=== PATIENT | female | born 1965 | race African-American/Black ===

== ENCOUNTER 2018-09-25 21:05 | Emergency (ER) | payer SELFPAY ==
[2018-09-25] MEDS ORDERED: IBUPROFEN 600 MG TABLET PO ONE (22:20)
--- NOTE | 2018-09-25 22:25 | ER Document Report ---
ED Skin Rash/Insect Bite/Abscs - General Chief Complaint: Insect Bite Stated Complaint: LEG PAIN Time Seen by Provider: 09/25/18 22:16 Primary Care Provider: DEVI SERRANO [NO LOCAL MD] - Follow up as needed Mode of Arrival: Ambulatory Information source: Patient Notes: 52-year-old female presents to ED for complaint of pain and swelling to the right lateral lower leg after she was in bit by an insect yesterday. There is no signs or symptoms of infection. There is a local reaction to an insect bite to the lateral right leg. Patient states she does have a history of high blood pressure and other allergies to Bactrim. She is not taking any Benadryl she has not applied any ice to the area. She is alert oriented respirations regular and unlabored speaking in full sentences. She denies any shortness of breath any swelling to the throat or any difficulty swallowing. TRAVEL OUTSIDE OF THE [place] IN LAST 30 DAYS: No - HPI Patient complains to provider of: Insect bite Onset: Yesterday Onset/Duration: Gradual Severity: Moderate Pain Level: 3 Skin Character: Erythema - Right lateral calf Quality of rash: Painful Identify cause: Yes - Insect bite Exacerbated by: Denies Relieved by: Denies Similar symptoms previously: Yes - More swollen than usual Recently seen / treated by doctor: No - Related Data Allergies/Adverse Reactions: sulfamethoxazole [From Bactrim] Allergy (Verified 09/25/18 21:48) trimethoprim [From Bactrim] Allergy (Verified 09/25/18 21:48) Past Medical History - General Information source: Patient - Social History Smoking Status: Former Smoker Cigarette use (# per day): No Chew tobacco use (# tins/day): No Smoking Education Provided: No Frequency of alcohol use: Occasional Drug Abuse: None Lives with: Parents Family History: Reviewed & Not Pertinent Patient has suicidal ideation: No Patient has homicidal ideation: No - Past Medical History Cardiac Medical History: Reports: Hx Hypertension Pulmonary Medical History: Reports: None EENT Medical History: Reports: None Neurological Medical History: Reports: None Endocrine Medical History: Reports: None Renal/ Medical History: Reports: None Malignancy Medical History: Reports: None GI Medical History: Reports: None Musculoskeletal Medical History: Reports None Skin Medical History: Reports None Psychiatric Medical History: Reports: None Traumatic Medical History: Reports: None Infectious Medical History: Reports: None Surgical Hx: Negative Past Surgical History: Reports: None - Immunizations Immunizations up to date: Yes Review of Systems - Review of Systems Constitutional: No symptoms reported EENT: No symptoms reported Cardiovascular: No symptoms reported Respiratory: No symptoms reported Gastrointestinal: No symptoms reported Genitourinary: No symptoms reported Female Genitourinary: No symptoms reported Musculoskeletal: No symptoms reported Skin: Other - Red swollen tender area to the right lateral calf where she was bit by an insect Hematologic/Lymphatic: No symptoms reported Neurological/Psychological: No symptoms reported -: Yes All other systems reviewed and negative Physical Exam - Vital signs Vitals: Temp Pulse Resp BP Pulse Ox 98.0 F 79 16 134/86 H 100 09/25/18 21:52 09/25/18 21:52 09/25/18 21:52 09/25/18 21:52 09/25/18 21:52 Interpretation: Normal - General General appearance: Appears well, Alert - HEENT Head: Normocephalic, Atraumatic Eyes: Normal Pupils: PERRL - Respiratory Respiratory status: No respiratory distress Chest status: Nontender Breath sounds: Normal Chest palpation: Normal - Cardiovascular Rhythm: Regular Heart sounds: Normal auscultation Murmur: No - Abdominal Inspection: Normal Distension: No distension Bowel sounds: Normal Tenderness: Nontender Organomegaly: No organomegaly - Back Back: Normal, Nontender - Extremities General upper extremity: Normal inspection, Nontender, Normal color, Normal ROM, Normal temperature General lower extremity: Normal ROM, Normal temperature, Normal weight bearing. No: Ivan's sign Calf: Tender - Erythematous swollen area to the right lateral calf since being bit by an insect yesterday Ankle: Normal, Nontender Foot: Normal, Nontender - Neurological Neuro grossly intact: Yes Cognition: Normal Orientation: AAOx4 [place] Coma Scale Eye Opening: Spontaneous [place] Coma Scale Verbal: Oriented [place] Coma Scale Motor: Obeys Commands Prachi Coma Scale Total: 15 Speech: Normal Motor strength normal: LUE, RUE, LLE, RLE Sensory: Normal - Psychological Associated symptoms: Normal affect, Normal mood - Skin Skin Temperature: Warm Skin Moisture: Dry Skin Color: Normal Course - Re-evaluation Re-evalutation: 09/25/18 22:25 Patient was instructed on use of Benadryl, calamine lotion, elevation and ice to the area. Patient instructed to return to the ED for any increase in swelling. Patient to follow-up with her primary care doctor for her blood pressure. Patient able to verbalize understanding and agreement with treatment plan. Patient was given ibuprofen in the emergency room and discharged home. - Vital Signs Vital signs: Temp Pulse Resp BP Pulse Ox 98.2 F 82 17 130/86 H 100 09/25/18 22:34 09/25/18 22:34 09/25/18 22:34 09/25/18 22:34 09/25/18 22:34 Discharge - Discharge Clinical Impression: Insect bite local reaction right calf Condition: Stable Disposition: HOME, SELF-CARE Instructions: Family Physicians / Practices Additional Instructions: Insect Bites You have been bitten by an insect. These bites can cause two types of swelling: an initial swelling due to insect saliva or injected poison, and a late reaction due to your body's allergic reaction. This initial local reaction may be uncomfortable but is not dangerous. Often there's an itchy "hive" at the bite location. This is treated with antihistamines, cold compresses, and resting the affected body part. The later reaction often develops about the second day. The entire area becomes very swollen, red, itchy, and tender. This is an allergic reaction. Your body is attacking the leftover insect saliva or venom. This type of allergy is unpleasant, but not dangerous. We treat this swelling with cortisone-type medicine. Sometimes we use antibiotics if we're worried about infection. Antihistamines help with the itch. If you develop a fever, chills, a red streak, or swollen glands in the area of the bite, infection may be starting. Return at once. Ibuprofen Ibuprofen is an excellent, safe drug for pain control. In addition, it has potent antiinflammatory effects which are beneficial, especially in the treatment of injuries, arthritis, or tendonitis. It's best to take ibuprofen with food. Persons with ulcer disease or allergy to aspirin should notify their physician of this before taking ibuprofen. Take the medication exactly as prescribed. Don't take additional doses unless instructed to do so by your doctor. If you develop wheezing, shortness of breath, hives, faintness, stomach pain, vomiting, or dark black stools, return for re-evaluation at once. Ice & Elevation Apply ice packs frequently against the painful area. Many different schedules are recommended, such as "20 minutes on, 20 minutes off" or "one hour ice, two hours rest." If you need to work, you may need to go longer between ice treatments. You should plan to have the area ice packed AT LEAST one-fourth of the time. The ice should be applied over the wrap, tape, or splint, or over a layer of cloth -- not directly against the skin. Some ice bags have a built-in cloth and can be put directly on the skin. Your injured part should be elevated as much as possible over the next 48 hours. Try to keep the injury above the level of the heart. Avoid use of the injured area. Elevation and rest will decrease the swelling. Diphenhydramine The use of diphenhydramine (Benadryl) has been recommended to control allergic symptoms. The 25 mg strength is available over- the-counter, as well as the elixir. This antihistamine is used for many symptoms. It's useful for itching, watering eyes and nose, allergic swelling, hives, and insect stings. The medication can be repeated four times daily. Age Elixir (12.5 mg/tsp) 25 mg pill 1 yr 1/4 tsp 2-3 yr 1/2 tsp 4-8 yr 1 tsp 9-14 yr 2 tsp one tab adult 1-2 tabs Antihistamines may cause drowsiness, especially with the first dose. Do not operate machinery or drive while under the effects of the medication. Do not combine the medication with alcohol, or with any other medication without talking to your doctor. FOLLOW-UP CARE: If you have been referred to a physician for follow-up care, call the physicians office for an appointment as you were instructed or within the next two days. If you experience worsening or a significant change in your symptoms, notify the physician immediately or return to the Emergency Department at any time for re-evaluation. Forms: Elevated Blood Pressure, Return to Work Referrals: ZACH,NO [NO LOCAL MD] - Follow up as needed
[2018-09-25 22:38] VITALS: BP 130/86
== END 2018-09-25 22:34 | disposition home or self-care (01) ==
LOC: ER 21:05
DX: S80.861A Insect bite (nonvenomous), right lower leg, initial encounter (principal); W57.XXXA Bitten or stung by nonvenomous insect and other nonvenomous arthropods, initial encounter; Y93.9 Activity, unspecified; Y92.9 Unspecified place or not applicable; Y99.9 Unspecified external cause status; I10 Essential (primary) hypertension; Z87.891 Personal history of nicotine dependence; Z88.2 Allergy status to sulfonamides
CPT/HCPCS: 99281

== ENCOUNTER 2019-12-02 19:35 | Emergency (ER) | payer BC ==
[2019-12-02 20:20] LABS: APPEARANCE,URINE SLIGHTLY-CLOUDY; BILIRUBIN,URINE NEGATIVE (NEGATIVE); COLOR,URINE YELLOW; GLUCOSE, URINE >=500 mg/dL (NEGATIVE); KETONES,URINE NEGATIVE (NEGATIVE); LEUKOCYTE ESTERASE,URINE TRACE (NEGATIVE); NITRITE,URINE POSITIVE (NEGATIVE); PROTEIN,URINE 30 mg/dL (NEGATIVE); URINE SPECIFIC GRAVITY 1.018; UROBILINOGEN,URINE NEGATIVE mg/dL (<2.0)
--- NOTE | 2019-12-02 20:33 | ER Document Report ---
ED Medical Screen (RME) - General Chief Complaint: Flank Pain Stated Complaint: FLANK PAIN Time Seen by Provider: 12/02/19 20:29 Mode of Arrival: Ambulatory Information source: Patient Notes: 53-year-old female patient presenting with left lower quadrant abdominal pain that wraps around her left flank area. She also reports urinary frequency. She denies any fever or chills, states she has had nausea. She states she had similar symptoms about 6 weeks ago and was seen at an urgent care and was given Macrobid. She states this pain is much worse than then but similar in nature. She denies any history of kidney stones. I have greeted and performed a rapid initial assessment of this patient. A comprehensive ED assessment and evaluation of the patient, analysis of test results and completion of the medical decision making process will be conducted by additional ED providers. I have specifically instructed the patient or family members with the patient to immediately return to any nursing staff should anything change in the patient's condition or with their chief complaint. TRAVEL OUTSIDE OF THE [place] IN LAST 30 DAYS: No - Related Data Allergies/Adverse Reactions: sulfamethoxazole [From Bactrim] Allergy (Verified 09/25/18 21:48) trimethoprim [From Bactrim] Allergy (Verified 09/25/18 21:48) Past Medical History - Past Medical History Cardiac Medical History: Reports: Hx Hypertension Renal/ Medical History: Denies: Hx Peritoneal Dialysis - Immunizations Immunizations up to date: Yes Physical Exam - Vital signs Vitals: Temp Pulse Resp BP Pulse Ox 98.6 F 77 20 123/85 99 12/02/19 19:41 12/02/19 19:41 12/02/19 19:41 12/02/19 19:41 12/02/19 19:41 Course - Vital Signs Vital signs: Temp Pulse Resp BP Pulse Ox 98.6 F 77 20 123/85 99 12/02/19 19:41 12/02/19 19:41 12/02/19 19:41 12/02/19 19:41 12/02/19 19:41 - Laboratory Laboratory results interpreted by me: 12/02/19 19:45 Urine Protein 30 H Urine Glucose (UA) >=500 H Urine Blood SMALL H Urine Nitrite POSITIVE H Ur Leukocyte Esterase TRACE H
[2019-12-02 21:18] LABS: ABSOLUTE EOSINOPHILS # (AUTO) 0.1 10^3/uL (0.0-0.6); ABSOLUTE LYMPHOCYTES (AUTO) 2.2 10^3/uL (0.5-4.7); ABSOLUTE MONOCYTES (AUTO) 0.5 10^3/uL (0.1-1.4); ABSOLUTE NEUT (AUTO) 5.5 10^3/uL (1.7-8.2); BASOPHILS % (AUTO) 0.5 % (0-2); EOSINOPHILS % (AUTO) 1.6 % (0-6); HEMATOCRIT 38.8 % (36.0-47.0); HEMOGLOBIN 13.1 g/dL (12.0-15.5); LYMPHOCYTES % (AUTO) 25.7 % (13-45); MEAN CORPUSCULAR HEMOGLOBIN 28.6 pg (27.0-33.4); MEAN CORPUSCULAR HGB CONC 33.7 g/dL (32.0-36.0); MEAN CORPUSCULAR VOLUME 85 fl (80-97); MONOCYTES % (AUTO) 6.1 % (3-13); PLATELET COUNT 207 10^3/uL (150-450); RED BLOOD COUNT 4.56 10^6/uL (3.72-5.28); RED CELL DISTRIBUTION WIDTH 14.1 % (11.5-14.0); SEGMENTED NEUTROPHILS % (AUTO) 66.1 % (42-78); TOTAL CELLS COUNTED % (AUTO) 100 %; WHITE BLOOD COUNT 8.4 10^3/uL (4.0-10.5)
[2019-12-02 21:38] LABS: ALBUMIN 4.4 g/dL (3.5-5.0); ALKALINE PHOSPHATASE 72 U/L (38-126); ANION GAP 9 (5-19); ASPARTATE AMINO TRANSFERASE 22 U/L (14-36); BILIRUBIN,TOTAL 0.5 mg/dL (0.2-1.3); BLOOD UREA NITROGEN 16 mg/dL (7-20); CALCIUM 9.4 mg/dL (8.4-10.2); CARBON DIOXIDE 27 mmol/L (22-30); CHLORIDE 106 mmol/L (98-107); GLUCOSE 137 mg/dL (75-110); POTASSIUM 3.7 mmol/L (3.6-5.0); TOTAL PROTEIN 7.6 g/dL (6.3-8.2)
[2019-12-02] MEDS ORDERED: ONDANSETRON HCL INJ/PF 4 MG/2 ML SDV IV ONE (22:06)
[2019-12-02] MEDS ORDERED: CEFTRIAXONE 1 GM/D5W RTU 1 GM/50 ML RTUPB IV ONE (22:06)
[2019-12-02] MEDS ORDERED: MORPHINE SULFATE 10 MG/ML INJ IV ONE (22:06)
--- NOTE | 2019-12-02 22:08 | ER Document Report ---
ED GI/ - General Chief Complaint: Flank Pain Stated Complaint: FLANK PAIN Time Seen by Provider: 12/02/19 20:29 Mode of Arrival: Ambulatory Notes: Patient is a 53-year-old female that comes emergency department for chief complaint of general left-sided abdominal pain wraps around her left flank. She states that the pain is worsening and started out mild last night. She states that pain is significantly worsened and now has become very sharp. She reports urinary frequency but denies dysuria. She has had nausea but denies vomiting, fever/chills, or any other complaints. Patient states she had similar symptoms about 6 weeks ago, she was seen in urgent care and was given Macrobid at this time. She states that she has frequent bladder infections and she also has had kidney stones several times in the past. She denies any recent imaging, denies frequent imaging. Past medical history of hypertension, denies medical history otherwise. She states she follows with urology in [place]. TRAVEL OUTSIDE OF THE [place] IN LAST 30 DAYS: No - Related Data Allergies/Adverse Reactions: sulfamethoxazole [From Bactrim] Allergy (Verified 09/25/18 21:48) trimethoprim [From Bactrim] Allergy (Verified 09/25/18 21:48) Home Medications: farxiga, lisinopril, vit d, atorvastatin Past Medical History - General Information source: Patient - Social History Smoking Status: Never Smoker Chew tobacco use (# tins/day): No Frequency of alcohol use: Social Drug Abuse: None Lives with: Family Family History: Reviewed & Not Pertinent Patient has homicidal ideation: No - Past Medical History Cardiac Medical History: Reports: Hx Hypercholesterolemia, Hx Hypertension Endocrine Medical History: Reports: Hx Diabetes Mellitus Type 2 - pre, farxiga Renal/ Medical History: Denies: Hx Peritoneal Dialysis Past Surgical History: Reports: Hx Hysterectomy - Immunizations Immunizations up to date: Yes Review of Systems - Review of Systems Constitutional: No symptoms reported EENT: No symptoms reported Cardiovascular: No symptoms reported Respiratory: No symptoms reported Gastrointestinal: See HPI Genitourinary: See HPI Female Genitourinary: No symptoms reported Musculoskeletal: No symptoms reported Skin: No symptoms reported Hematologic/Lymphatic: No symptoms reported Neurological/Psychological: No symptoms reported Physical Exam - Vital signs Vitals: Temp Pulse Resp BP Pulse Ox 98.6 F 77 20 123/85 99 12/02/19 19:41 08/23/20 19:41 12/02/19 19:41 12/02/19 19:41 12/02/19 19:41 - Notes Notes: GENERAL: Alert, interacts well. No acute distress. HEAD: Normocephalic, atraumatic. EYES: Pupils equal, round, and reactive to light. Extraocular movements intact. ENT: Oral mucosa moist, tongue midline. Oropharynx unremarkable. Airway patent. NECK: Full range of motion. Supple. Trachea midline. No lymphadenopathy. LUNGS: Clear to auscultation bilaterally, no wheezes, rales, or rhonchi. No respiratory distress. Non-tender chest wall. HEART: Regular rate and rhythm. No murmur ABDOMEN: Generalized mid to lower abdominal tenderness especially on the left side. No guarding or rigidity. Bowel sounds present throughout. EXTREMITIES: Moves all 4 extremities spontaneously. No edema, normal radial and dorsalis pedis pulses bilaterally. No cyanosis. BACK: no cervical, thoracic, lumbar midline tenderness. No saddle anesthesia, normal distal neurovascular exam. Moves all extremities in full range of motion. NEUROLOGICAL: Alert and oriented x3. Normal speech. Cranial nerves II through XII grossly intact. Strength 5/5 in all extremities. PSYCH: Normal affect, normal mood. SKIN: Warm, dry, normal turgor. No rashes or lesions noted. Course - Re-evaluation Re-evalutation: Patient with generalized abdominal pain worse on the left on exam but no guarding. No overt CVA tenderness. She does not appear to be in severe distress but does state that she feels like she is passing a kidney stone. She states she has passed many kidney stones. We do not have any comparison images. CBC unremarkable, chemistry unremarkable, UTI is present. Started on Rocephin. Because of UTI and potential infected stone CAT scan was performed but shows only constipation with no acute findings. Discussed with patient. Patient was medicated earlier, she is smiling and well-appearing on reevaluation, I di scussed all details at length. Patient will be treated with antibiotics, she states she has a stool softener at home that she will resume intake for the next several days, discussed follow-up and return precautions. Patient states appreciation and agreement. Stable and well-appearing at time of discharge. - Vital Signs Vital signs: Temp Pulse Resp BP Pulse Ox 98.2 F 87 14 116/89 H 99 12/03/19 00:11 12/03/19 00:11 12/03/19 00:11 12/03/19 00:11 12/03/19 00:11 - Laboratory Result Diagrams: 12/02/19 20:55 12/02/19 20:55 Laboratory results interpreted by me: 12/02/19 12/02/19 12/02/19 19:45 20:55 20:55 RDW 14.1 H Glucose 137 H Urine Protein 30 H Urine Glucose (UA) >=500 H Urine Blood SMALL H Urine Nitrite POSITIVE H Ur Leukocyte Esterase TRACE H Discharge - Discharge Clinical Impression: Abdominal pain Qualifiers: Abdominal location: generalized Qualified Code(s): R10.84 - Generalized abd ominal pain Urinary tract infection Qualifiers: Urinary tract infection type: site unspecified Hematuria presence: without hematuria Qualified Code(s): N39.0 - Urinary tract infection, site not specified Condition: Stable Disposition: HOME, SELF-CARE Additional Instructions: Your evaluation shows a urinary tract infection, take antibiotics to completion. Drink plenty of fluids. You have a large amount of retained stool on the imaging but no kidney stones or passing stones. I recommend your MiraLAX 1-2 times daily for the next several days. Take Zofran if needed for nausea. You can take 600 mg of ibuprofen and 1000 g of Tylenol together every 6 hours for pain. Return if you worsen including severe worsening pain, vomiting, fevers, or any other concerning symptoms. Prescriptions: Cephalexin Monohydrate [Keflex 500 mg Capsule] 500 mg PO BID 7 Days #14 capsule Ondansetron [Zofran Odt 4 mg Tablet] 1 - 2 tab PO Q4H PRN #15 tab.rapdis PRN Reason: For Nausea/Vomiting Forms: Return to Work
--- NOTE | 2019-12-02 22:38 | RADIOLOGY REPORT (SQ) ---
EXAM DESCRIPTION: CT ABDOMEN PELVIS WITHOUT IV CONTRAST COMPLETED DATE/TME: 12/02/2019 22:06 CLINICAL HISTORY: 53 years, Female, left abd/flank pain, UTI, hx kidney stones COMPARISON: None. TECHNIQUE: 324 Images stored on PACS. All CT scanners at this facility use dose modulation, iterative reconstruction, and/or weight based dosing when appropriate to reduce radiation dose to as low as reasonably achievable (ALARA). [facility]: Dose Right [facility]: CareDose [facility]: Dose Right [facility]: Teradose 4D [facility]: [employer] LIMITATIONS: None. FINDINGS: Limited evaluation of the lung bases is unremarkable. Osseous structures are grossly intact. Limited evaluation of the liver, spleen, adrenal glands, pancreas, kidneys are unremarkable. Gallbladder is contracted. Negative for urinary tract calculus or hydronephrosis. No gross evidence for bowel obstruction. Large amount of stool in the colon. Normal appendix. No free air. No free fluid IMPRESSION: Negative for urinary tract calculus. Large amount of stool in the colon TECHNICAL DOCUMENTATION: Quality ID # [id number]: Final reports with documentation of one or more dose reduction techniques (e.g., Automated exposure control, adjustment of the mA and/or kV according to patient size, use of iterative reconstruction technique) copyright 2011 [employer]- All Rights Reserved
[2019-12-02] MEDS ORDERED: ONDANSETRON ODT 4 MG TAB (6 TAB/ER DISP) PO PRN (23:55)
[2019-12-03 00:14] VITALS: BP 116/89
== END 2019-12-03 00:14 | disposition home or self-care (01) ==
LOC: ER 19:35
DX: R10.84 Generalized abdominal pain (principal); N39.0 Urinary tract infection, site not specified; R10.9 Unspecified abdominal pain; R35.0 Frequency of micturition; Z88.2 Allergy status to sulfonamides; R11.0 Nausea; Z79.899 Other long term (current) drug therapy
CPT/HCPCS: 99285; 96375; 96365; 36415; 87086; 83690; 85025; 87088; 80053; 81001; 87186; 74176; J2270; J2405; J0696

== ENCOUNTER → 2020-04-10 | Outpatient (CLI) | payer BC ==
--- NOTE | 2020-04-10 15:36 | RADIOLOGY REPORT (SQ) ---
EXAM DESCRIPTION: WRIST BILATERAL 3 VIEWS IMAGES COMPLETED DATE/TIME: 04/10/2020 3:19 pm REASON FOR STUDY: NEUROPATHY M54.9 DORSALGIA, UNSPECIFIED G56.02 CARPAL TUNNEL SYNDROME, LEFT UPPE R LIMB G56.01 CARPAL TUNNEL SYNDROME, RIGHT UPPER LIMB COMPARISON: None. NUMBER OF VIEWS: Three views. TECHNIQUE: AP, lateral, and oblique radiographic images acquired of the right and left wrist. LIMITATIONS: None. FINDINGS: MINERALIZATION: Normal. BONES: No acute fracture or dislocation. No worrisome bone lesions. Normal alignment. No significant osteophytes. JOINTS: No erosions. No erendira-articular osteopenia. No chondrocalcinosis. SOFT TISSUES: No swelling. No calcifications. OTHER: No other significant finding. IMPRESSION: NEGATIVE STUDY OF THE RIGHT AND LEFT WRISTS. NO EXPLANATION FOR PAIN. TECHNICAL DOCUMENTATION: JOB ID: [id number] 2010 [employer]- All Rights Reserved Reading location - IP/workstation name: [email or web address]
--- NOTE | 2020-04-10 15:49 | RADIOLOGY REPORT (SQ) ---
EXAM DESCRIPTION: L SPINE WHOLE IMAGES COMPLETED DATE/TIME: 04/10/2020 3:19 pm REASON FOR STUDY: NEUROPATHY M54.9 DORSALGIA, UNSPECIFIED G56.02 CARPAL TUNNEL SYNDROME, LEFT UPPE R LIMB G56.01 CARPAL TUNNEL SYNDROME, RIGHT UPPER LIMB COMPARISON: 05/25/2010 NUMBER OF VIEWS: Five views including obliques. TECHNIQUE: AP, lateral, oblique, and sacral radiographic images acquired of the lumbar spine. LIMITATIONS: None. FINDINGS: MINERALIZATION: Normal. SEGMENTATION: Normal. No transitional anatomy. ALIGNMENT: Normal. VERTEBRAE: Maintained height. No fracture or worrisome bone lesion. DISCS: Degenerate at T10-T11 and T12-L1 with mild anterior osteophytes. Slight interval progression since the prior study. POSTERIOR ELEMENTS: Facet arthrosis. Pedicles are intact. No pars defect or posterior arch defects . HARDWARE: None in the spine. PARASPINAL SOFT TISSUES: Normal. PELVIS: Intact as visualized. No fractures or worrisome bone lesions. SI joints intact. OTHER: No other significant finding. IMPRESSION: 1. Facet arthrosis lower lumbar spine. Degenerative disc disease T10-T11 and T12-L1. S light interval progression since the prior study dated 05/25/2010. 2. No acute osseous findings. TECHNICAL DOCUMENTATION: JOB ID: [id number] [employer]- All Rights Reserved Reading location - IP/workstation name: [email or web address]
== END ==
LOC: RAD 14:25
PROVIDERS: ATTEND Nurse Practitioner Family
DX: M51.34 Other intervertebral disc degeneration, thoracic region (principal); M47.896 Other spondylosis, lumbar region; G56.03 Carpal tunnel syndrome, bilateral upper limbs; G60.9 Hereditary and idiopathic neuropathy, unspecified
CPT/HCPCS: 72110

== ENCOUNTER 2020-04-11 09:15 | Emergency (ER) | payer BC ==
--- NOTE | 2020-04-11 11:07 | ER Document Report ---
ED Neck/Back Problem - General Chief Complaint: Back Pain Stated Complaint: BACK SPASMS/PAIN Time Seen by Provider: 04/11/20 11:06 Primary Care Provider: DORA AREVALO FNP-C [Primary Care Provider] - Follow up as needed Mode of Arrival: Ambulatory Information source: Patient Notes: 04/11/20 11:03 - ED Nursing Note by KATJENNIFERIDA [facility] Num: [id number] : 1965 Patient Age: 54 Pt states that she came here yesterday to have an xray of her back as outpatient due to back pain that she has been having for several months. Pt states that the back pain has gotten increasingly worse since yesterday and now radiates to her shoulder blades and to her right flank. Pt denies any other pain or symptom. Pt breathing e/u.NAD noted. MY NOTES 54-year-old female with chief complaint of back pain that has gotten progressively worse over 24 hours. 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 Patient also had x-rays of bilateral wrists for carpal tunnel. She just had her thyroid checked 2 months ago which was normal. She advises to go to get some blood work on Tuesday with her private doctor. Her pain is around her CVA bilaterally down to her bilateral SI joints. Pain is worse on flexion and extension and rotation. She also has sciatica pain down her right gluteus. She does not have a orthopedic doctor. TRAVEL OUTSIDE OF THE [place] IN LAST 30 DAYS: No - HPI Patient complains to provider of: Lower back. No: Pain, Injury, Neck Onset: Other - Worse x24 hours but on and off for several months. Where: Home, Work. No: Indoors, Neighbor's, [facility], Outdoors, Public place, School, Sports Severity: Mild Pain Level: 1 Context: Lifting, Turning. denies: Became dizzy, Bending, Fainted, Fall/near- fall, Seizure Recent injury: Possibly Associated symptoms: Radiation to leg, Lower back pain, Other. denies: Chest pain, Abdominal pain, Chills, Constipation, Fever, Incontinence, Motor loss Exacerbated by: Movement of trunk, Sitting position. denies: Cough/deep breaths, Movement of neck Similar symptoms previously: No Recently seen / treated by doctor: No - Related Data Allergies/Adverse Reactions: sulfamethoxazole [From Bactrim] Allergy (Verified 04/11/20 11:06) trimethoprim [From Bactrim] Allergy (Verified 04/11/20 11:06) Past Medical History - General Information source: Patient - Social History Smoking Status: Unknown if Ever Smoked Cigarette use (# per day): No Chew tobacco use (# tins/day): No Smoking Education Provided: No Frequency of alcohol use: None Drug Abuse: None Lives with: Family Family History: Reviewed & Not Pertinent Patient has suicidal ideation: No Patient has homicidal ideation: No - Past Medical History Cardiac Medical History: Reports: Hx Hypercholesterolemia, Hx Hypertension Endocrine Medical History: Reports: Hx Diabetes Mellitus Type 2 - pre, farxiga Renal/ Medical History: Denies: Hx Peritoneal Dialysis Past Surgical History: Reports: Hx Hysterectomy - Immunizations Immunizations up to date: Yes Review of Systems - Review of Systems Constitutional: No symptoms reported EENT: No symptoms reported Cardiovascular: No symptoms reported Respiratory: No symptoms reported Gastrointestinal: No symptoms reported Genitourinary: No symptoms reported Female Genitourinary: No symptoms reported Musculoskeletal: See HPI, Back pain, Joint pain - Wrist pain bilaterally full range of motion Skin: No symptoms reported Hematologic/Lymphatic: No symptoms reported Neurological/Psychological: No symptoms reported Physical Exam - Vital signs Vitals: Temp Pulse Resp BP Pulse Ox 98.3 F 70 18 142/102 H 99 04/11/20 09:22 04/11/20 09:22 04/11/20 09:22 04/11/20 09:22 04/11/20 09:22 Interpretation: Normal - General General appearance: Appears well, Alert - HEENT Head: Normocephalic, Atraumatic Eyes: Normal Pupils: PERRL - Respiratory Respiratory status: No respiratory distress Chest status: Nontender Breath sounds: Normal Chest palpation: Normal - Cardiovascular Rhythm: Regular Heart sounds: Normal auscultation Murmur: No - Abdominal Inspection: Normal Distension: No distension Bowel sounds: Normal Tenderness: Nontender Organomegaly: No organomegaly - Rectal Hemorrhoids: Other - deferred - Genitourinary Bimanuel exam: Other - deferred - Back Back: Tender - Right CVA greater than left CVA pain patient also has pain down the right gluteal and to the posterior thigh. - Extremities General upper extremity: Tender - Bilateral wrist tender to palpation and range of motion around snuffbox no obvious ganglion seen and no positive Tinel's sign, Normal color, Normal ROM, Normal temperature General lower extremity: Normal inspection, Nontender, Normal color, Normal ROM, Normal temperature, Normal weight bearing. No: Ivan's sign - Neurological Neuro grossly intact: Yes Cognition: Normal Orientation: AAOx4 Prachi Coma Scale Eye Opening: Spontaneous Prachi Coma Scale Verbal: Oriented [place] Coma Scale Motor: Obeys Commands Prachi Coma Scale Total: 15 Speech: Normal Motor strength normal: LUE, RUE, LLE, RLE Sensory: Normal - Psychological Associated symptoms: Normal affect, Normal mood - Skin Skin Temperature: Warm Skin Moisture: Dry Skin Color: Normal Course - Vital Signs Vital signs: Temp Pulse Resp BP Pulse Ox 98.3 F 70 18 142/102 H 99 04/11/20 09:22 04/11/20 09:22 04/11/20 09:22 04/11/20 09:22 04/11/20 09:22 - Laboratory Results Critical Laboratory Results Reviewed: No Critical Results Attending or Supervising Physician who Reviewed Labs: DAGOBERTO KAUR JR - Radiology Results Critical Radiology Results Reviewed: Yes Attending or Supervising Physician who Reviewed Radiology: DAGOBERTO KAUR JR Discharge - Discharge Clinical Impression: Carpal tunnel syndrome, 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 Abimael Newby and return to ER as needed take medicines as directed encourage fluids and avoid lifting bending or twisting until seen by PMD Prescriptions: Dexamethasone [Decadron 4 Mg Tablet] 4 mg PO DAILY #3 tablet Chlorzoxazone [Parafon Forte Dsc 500 Mg Tablet] 500 mg PO BID #20 tablet Forms: Return to Work Referrals: DORA AREVALO FNP-C [Primary Care Provider] - Follow up as needed SURAJ NEWBY JR, DO [ACTIVE PROVISIONAL STAFF] - Follow up as needed
[2020-04-11] MEDS ORDERED: DEXAMETHASONE 4 MG TABLET PO ONE (12:30)
[2020-04-11] MEDS ORDERED: OXYCODONE-ACETAMINOPHEN 5-325 MG TABLET PO ONE (12:30)
[2020-04-11 13:00] VITALS: BP 134/80
== END 2020-04-11 12:59 | disposition home or self-care (01) ==
LOC: ER 09:15
DX: M47.24 Other spondylosis with radiculopathy, thoracic region (principal); G56.03 Carpal tunnel syndrome, bilateral upper limbs; M47.816 Spondylosis without myelopathy or radiculopathy, lumbar region; I10 Essential (primary) hypertension; Z88.1 Allergy status to other antibiotic agents
CPT/HCPCS: 99283; J8540